=== PATIENT | female | born 1955 | race Caucasian/White ===

== ENCOUNTER → 2022-03-16 13:20 | Outpatient (BNVA) | payer MEDICARE, SELFPAY | PROVIDERS: Visit Provider Specialist | DX: R42 Dizziness and giddiness (principal); G81.91 Hemiplegia, unspecified affecting right dominant side | CPT/HCPCS: 99204 ==

== ENCOUNTER 2022-05-06 13:18 | Outpatient (CLI) | payer MEDICARE, SELFPAY ==
--- NOTE | 2022-05-06 13:45 | MR_ITS ---
WS: [id number] MRI CERVICAL SPINE NONCONTRAST TECHNIQUE: Sagittal T1, T2 and STIR imaging. Axial T2, gradient, and fiesta imaging. CLINICAL INFORMATION: G35 - Multiple sclerosis COMPARISON: None. FINDINGS: Straightening of the normal cervical lordosis. Mild disc bulging in the mid cervical spine at C5-C7. Cord signal is normal. No high-grade central canal stenosis. No cord atrophy. No T2 hyperintense or enhancing lesions within the cervical or upper thoracic cord. C2-C3: Normal. C3-C4: No significant disc bulging. Mild facet arthropathy. Spinal canal and foramen are patent. C4-C5: No significant disc bulging. Moderate RIGHT facet arthropathy. Mild LEFT and no significant RI GHT foraminal narrowing. Spinal canal is patent. C5-C6: Disc osteophyte complex with endplate ridging. Moderate bilateral bony foraminal narrowing. Mo derate facet arthropathy. Mild central canal stenosis. C6-C7: Disc osteophyte complex with endplate ridging. RIGHT eccentric disc osteophyte complex with sl ight indentation RIGHT ventral cervical cord. Mild central canal stenosis. Moderate RIGHT and mild LE FT bony foraminal narrowing. Mild facet arthropathy. C7-T1: Mild LEFT greater than RIGHT bony foraminal narrowing. Spinal canal is patent. Visualized brain stem structures: Normal. Prevertebral soft tissues: Normal. MR/MR cervical spine wo/w [id number] IMPRESSION: 1. No T2 hyperintense or enhancing lesions within the cervical cord. 2. No significant cord atrophy. Cord signal is normal. 3. Mild central canal stenosis C5-C6 and C6-C7. 4. RIGHT pericentral disc osteophyte complex with slight indentation RIGHT krishna tral cervical cord and mild central canal stenosis. 5. Moderate bony foraminal narrowing worse at bilateral C5-C6 worse on the RIG HT and RIGHT C6-C7, 6. Mild LEFT greater than RIGHT bony foraminal narrowing C7-T1. 7. Moderate asymmetric RIGHT facet arthropathy C4-C5. Moderate facet arthropat hy C5-C6
--- NOTE | 2022-05-06 14:30 | MR_ITS ---
WS: [id number] MRI HEAD WITH CONTRAST TECHNIQUE: Sagittal T1, T2 axial, T2 axial FLAIR, axial susceptibility weighted imaging, axial diffus ion weighted images, and coronal T2 images were obtained. Pre and post-T1 axial and post T1 coronal i mages. ADC and FSPGR images. CLINICAL INFORMATION: R42 - Dizziness and giddiness COMPARISON: None. FINDINGS: No evidence restricted diffusion to suggest acute ischemia. Ventricular system and basal cisterns are patent. Moderate patchy supratentorial periventricular white matter changes. Dilatation of the ventr icular system out of proportion to the degree of atrophy suspicious for normal pressure or compensate d hydrocephalus. Acquired aqueductal stenosis could also give this appearance. Dilatation of the temp oral horns and 3rd ventricle. No significant transependymal edema. Normal caliber 4th ventricle. Normal cerebellum. Normal vascular flow voids at the skull base. No ext ra-axial fluid collections. Paranasal sinuses and mastoid air cells well aerated. No hemosiderin on t he susceptibly weighted images. Supratentorial mass effect with flattening of the midbrain. Normal op tic chiasm and pituitary infundibulum. Thinning of the corpus callosum. Normal cavernous sinuses and Meckel's cave. No abnormal gadolinium enhancement. Normal visualized pos terior nasopharynx. Normal dural venous sinuses. MR/MR head wo/w con [id number] IMPRESSION: 1. No evidence of restricted diffusion to suggest acute ischemia. 2. 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 Some this may be due to small vessel changes. 3. Moderate dilatation of the ventricular system suspicious for normal pressur e or compensated hydrocephalus. Acquired aqueductal stenosis could also give th is appearance. Normal caliber 4th ventricle. Dilatation of the 3rd ventricle an d occipital horns. 4. No significant parenchymal volume loss. 5. Flattening of the midbrain with thinning of the corpus callosum can be seen with normal pressure hydrocephalus. This can be further evaluated with MRI CSF flow study. 6. No abnormal gadolinium enhancement.
== END 2022-05-06 13:19 | disposition home or self-care (01) ==
LOC: RAD 13:19
PROVIDERS: Visit Provider Specialist
DX: G35 Multiple sclerosis (principal); R42 Dizziness and giddiness; M48.02 Spinal stenosis, cervical region; M25.78 Osteophyte, vertebrae; M47.812 Spondylosis without myelopathy or radiculopathy, cervical region
CPT/HCPCS: 70553; 72156

== ENCOUNTER → 2022-06-01 08:50 | Outpatient (BNVA) | payer MEDICARE, SELFPAY | PROVIDERS: Visit Provider Specialist | DX: G91.9 Hydrocephalus, unspecified (principal); R20.0 Anesthesia of skin; R20.2 Paresthesia of skin; G93.5 Compression of brain; M47.892 Other spondylosis, cervical region; R26.89 Other abnormalities of gait and mobility | CPT/HCPCS: 36415; 80053; 84443; 85025; 99214 ==

== ENCOUNTER 2024-10-05 06:00 | Outpatient (RCR) | payer MEDICARE, SELFPAY | END 2024-10-09 23:59 | disposition home or self-care (01) | LOC: WPT 06:00 | PROVIDERS: Visit Provider Family Medicine | DX: M25.561 Pain in right knee (principal) | CPT/HCPCS: 97110; 97161 ==

== ENCOUNTER 2024-10-10 06:00 | Outpatient (RCR) | payer MEDICARE, SELFPAY | END 2024-11-09 23:59 | disposition home or self-care (01) | LOC: WPT 06:00 | PROVIDERS: Visit Provider Family Medicine | DX: M25.561 Pain in right knee (principal) | CPT/HCPCS: 97110; 97530 ==

== ENCOUNTER 2024-12-08 06:30 | Outpatient (RCR) | payer MEDICARE, SELFPAY | END 2025-01-07 23:59 | disposition home or self-care (01) | LOC: WPT 06:30 | PROVIDERS: Visit Provider Family Medicine | DX: M25.561 Pain in right knee (principal) | CPT/HCPCS: 97110; 97530 ==